=== PATIENT | female | born 1960 | race Caucasian/White ===

== ENCOUNTER 2016-08-22 09:12 | Day surgery (SDC) | payer BC ==
[~2016-08-22] VITALS: Ht 170.2 cm; Wt 65.8 kg
[2016-08-22] MEDS ORDERED: DIVAL250 PO (09:59)
[2016-08-22] MEDS ORDERED: METO-296 PO (09:59)
[2016-08-22] MEDS ORDERED: AZAT50TA24 PO (09:59)
[2016-08-22 10:39] LABS: BASOPHILS % 1.2 % (0.0-2.0); EOSINOPHILS % 1.5 % (0.0-5.0); HEMATOCRIT. 28.9 % (36.0-48.0); HEMOGLOBIN. 9.5 g/dL (12.0-16.0); LYMPHOCYTES % 15.8 % (20.0-50.0); MEAN CORPUSCULAR HEMOGLOBIN 29.7 pg (28.0-32.0); MEAN CORPUSCULAR HGB CONC 32.9 g/dL (31.0-37.0); MEAN PLATELET VOLUME 10.2 fl (7.4-10.4); MONOCYTES % 7.8 % (2.0-8.0); NEUTROPHILS % 73.7 % (40.0-76.0); PLATELET 123 x1000/uL (130-400); RED BLOOD CELL COUNT 3.21 mill/uL (4.2-5.4); RED CELL DISTRIBUTION WIDTH 14.4 % (11.6-14.6); WHITE BLOOD COUNT 3.8 x1000/uL (4.5-11.0)
[2016-08-22 10:44] LABS: CALCIUM 9.6 mg/dL (8.5-10.1)
[2016-08-22 10:46] LABS: PARTIAL THROMBOPLASTIN TIME 22.3 sec (24.0-34.0)
[2016-08-22] MEDS ORDERED: SODIUM CHLORIDE 0.9% 500 ML IV NR (10:50)
[2016-08-22] MEDS ORDERED: THROMBIN (BOVINE) 5000 UNITS/VIAL TOP ONE (11:27)
[2016-08-22] MEDS ORDERED: GELATIN SPONGE,ABSORBABLE SZ 100 ONE (11:27)
[2016-08-22] MEDS ORDERED: BACITRACIN ZINC 15GM TUBE TOP ONE (11:27)
[2016-08-22] MEDS ORDERED: NORMAL SALINE 0.9% 10 ML SYR ONE (11:28)
[2016-08-22] MEDS ORDERED: BACITRACIN 50,000 UNITS/VIAL ONE (11:28)
[2016-08-22] MEDS ORDERED: HEPARIN SODIUM 1,000 UNIT/1ML VIAL IV ONE (11:28)
[2016-08-22] MEDS ORDERED: BUPIVACAINE HCL/PF 0.5% (5MG/ML) 10ML ONE (11:28)
[2016-08-22] MEDS ORDERED: LIDOCAINE HCL 1% 20ML VIAL (Pyxis) INJ ONE ×2 (11:28→11:51)
[2016-08-22] MEDS ORDERED: FENTANYL CITRATE/PF 50MCG/ML 2ML VIAL ONE (11:48)
[2016-08-22] MEDS ORDERED: PROPOFOL 200MG/20ML VIAL IV ONE (11:51)
[2016-08-22] MEDS ORDERED: CEFAZOLIN SODIUM 1000MG/VIAL ONE (12:03)
[2016-08-22] MEDS ORDERED: EPHEDRINE SULFATE 50MG/ML VIAL ONE (12:12)
[2016-08-22] MEDS ORDERED: HEPARIN 1000 UNITS/ML 10ML ONE (12:36)
[2016-08-22] MEDS ORDERED: ONDANSETRON HCL 4MG/2ML VIAL ONE (12:41)
[2016-08-22] MEDS ORDERED: HYDROMORPHONE HCL/PF 2MG/ML CPJ IV PRN (13:00)
[2016-08-22] MEDS ORDERED: ONDANSETRON HCL 4MG/2ML VIAL IV PRN (13:00)
[2016-08-22] MEDS ORDERED: HYDROCODONE/ACETAMINOPHEN 5/325MG TABLET PO PRN (13:15)
== END 2016-08-22 15:40 | disposition home or self-care (01) ==
LOC: OR 09:12
PROVIDERS: ATTEND Surgery Vascular Surgery
DX: I12.0 Hypertensive chronic kidney disease with stage 5 chronic kidney disease or end stage renal disease (principal); N18.6 End stage renal disease; D64.89 Other specified anemias; E78.5 Hyperlipidemia, unspecified
CPT/HCPCS: 36415; 36818; 80048; 85025; 85610; 85730; 93005; A4216; J0171; J0690; J1644; J2405; J3010; J3490; J7040; A4565; J2704

== ENCOUNTER → 2017-05-30 | Day surgery (SDC) | payer BC ==
[~2017-05-30] MED LIST: AZAT50TA24 PO; DIVAL250 PO; FENTANYL CITRATE/PF 50MCG/ML 2ML VIAL ONE; FERR325T6 PO; IODIXANOL 320MG/ML 100 ML BOTTLE IV ONE; IOVERSOL 240MG/ML 100ML BOTTLE IV ONE; LIDOCAINE HCL 1% 20ML VIAL (Pyxis) INJ ONE; METO-396 PO; MIDAZOLAM HCL 2 MG/2 ML VIAL ONE
[2017-05-30 07:37] LABS: BASOPHILS % 0.9 % (0.0-2.0); EOSINOPHILS % 3.3 % (0.0-5.0); HEMATOCRIT. 29.3 % (36.0-48.0); HEMOGLOBIN. 9.5 g/dL (12.0-16.0); LYMPHOCYTES % 12.2 % (20.0-50.0); MEAN CORPUSCULAR HEMOGLOBIN 30.2 pg (28.0-32.0); MEAN CORPUSCULAR VOLUME 92.5 fL (81.0-99.0); NEUTROPHILS % 71.6 % (40.0-76.0); PLATELET 153 x1000/uL (130-400); RED BLOOD CELL COUNT 3.16 mill/uL (4.2-5.4); RED CELL DISTRIBUTION WIDTH 15.1 % (11.6-14.6)
[2017-05-30 07:50] LABS: PARTIAL THROMBOPLASTIN TIME 25.9 sec (23.4-31.0)
== END | disposition home or self-care (01) ==
LOC: CCL 06:07
PROVIDERS: ATTEND Surgery Vascular Surgery
DX: T82.598A Other mechanical complication of other cardiac and vascular devices and implants, initial encounter (principal)
CPT/HCPCS: 36415; 36901; 37241; 80048; 85025; 85610; 85730; C1769; C1874; C1893; C1894; J1644; J2250; J3010; J3490; Q9967